=== PATIENT | male | born 1970 | race Caucasian/White ===

== ENCOUNTER 2018-04-18 19:35 | Inpatient (IN) | payer MEDICAID ==
[2018-04-18 19:35] VITALS: BMI 26.8
--- NOTE | 2018-04-18 20:01 | C.PDOC ---
History Of Present Illness 47 year old male with history of ADHD, anxiety and depression presents to the emergency department with complaints of suicidal ideation. Patient reports having suicidal thoughts for the past year, and admits to a previous aspirin ove rdose attempt 6 months ago. Patient denies recent overdose attempt or trauma/ fall/ cutting self. Patient also reports hearing voices which aren't there, but denies visual hallucination. Patient reports that he is taking Xanax and ADHD medication as prescribed for his anxiety and ADHD. He denies chest pain, shortness of breath, abdominal pain, headache, neck stiffness, back pain, fever, night swetas and chills. Time Seen by Provider: 04/18/18 20:01 Chief Complaint (Nursing): Psychiatric Evaluation History Per: Patient History/Exam Limitations: no limitations Onset/Duration Of Symptoms: Other (one year) Current Symptoms Are (Timing): Still Present Suicide/Self Injury Attempted (Context): Other (aspirin overdose 6 months ago) Modifying Factor(s): None Associated Symptoms: Anxiety, Depression, Suicidal Thoughts Past Medical History Reviewed: Historical Data, Nursing Documentation, Vital Signs - Medical History PMH: Anxiety, Depression Denies: Diabetes, Hepatitis, HIV, HTN, Seizures, Sexually Transmitted Disease Other PMH: ADHD Surgical History: No Surg Hx - [facility] Procedures PSYCHIA INTERV/EVAL NEC (02/11/13) Family History: States: No Known Family Hx - Social History Hx Alcohol Use: Yes Hx Substance Use: Yes - Immunization History Hx Tetanus Toxoid Vaccination: No Hx Influenza Vaccination: No Review Of Systems Constitutional: Negative for: Fever, Chills Eyes: Negative for: Pain, Vision Change ENT: Negative for: Ear Pain, Ear Discharge, Nose Pain, Nose Congestion, Mouth Pain Cardiovascular: Negative for: Chest Pain, Palpitations, Edema, Light Headedness Respiratory: Negative for: Shortness of Breath, SOB with Excertion Gastrointestinal: Negative for: Nausea, Vomiting, Abdominal Pain Genitourinary: Negative for: Dysuria, Frequency Musculoskeletal: Negative for: Neck Pain, Shoulder Pain, Back Pain Skin: Negative for: Rash, Lesions, Jaundice Neurological: Negative for: Weakness, Numbness, Incoordination, Change in Speech, Confusion, Seizures, Headache Psych: Positive for: Suicidal ideation, Other (hallucination) Physical Exam - Physical Exam Appears: Non-toxic, No Acute Distress Skin: Normal Color, Warm, Dry Head: Atraumatic, Normacephalic Eye(s): bilateral: Normal Inspection, PERRL, EOMI Ear(s): Bilateral: Normal Nose: Normal Oral Mucosa: Moist Lips: Normal Appearing Teeth: Normal Dentition Gingiva: Normal Appearing Throat: Normal Neck: Normal, Normal ROM, Supple, No Other (meningeal signs) Chest: Symmetrical, No Tenderness Cardiovascular: Rhythm Regular, No Murmur Respiratory: Normal Breath Sounds, No Rales, No Rhonchi, No Wheezing Gastrointestinal/Abdominal: Normal Exam, Soft, No Tenderness, No Mass, No Distention, No Guarding Back: Normal Inspection, No CVA Tenderness, No Vertebral Tenderness Male Genital: Normal Inspection Extremity: Normal ROM Neurological/Psych: Oriented x3, Normal Speech, Normal Cognition, No Cerebellar Signs, Normal Motor, Normal Sensation, Other (suicidal ideation, auditory hallucination) Gait: Steady Extremity: Right: No Drift, Left: No Drift ED Course And Treatment - Laboratory Results Result Diagrams: 04/18/18 20:43 04/18/18 20:43 Medical Decision Making Medical Decision Makin yr old male w/ hx of ADHD, depression, anxiety p/w SI w/ a plan. No active / recent attempt. No signs of trauma or fall. Benign physical exam. No other complaints. Likely SI will require admission. Plan: Acetaminophen Alcohol Serum CMP Drug Screen Magnesium Phosphorus Salicylate CBC Urinalysis 2142 labs reviewed, unremarkable pt in NAD, no signs of etoh use / withdrawal Medically clear 2200 Accepted by CRISIS team to admit to Dr. Brady team for SI Disposition - Disposition Disposition: HOME/ ROUTINE Disposition Time: 22:00 Condition: GOOD - Clinical Impression Clinical Impression: Suicidal ideation - Scribe Statement The provider has reviewed the documentation as recorded by the Scribe (Jaime Linaresvi) Provider Attestation: All medical record entries made by the Scribe were at my direction and personally dictated by me. I have reviewed the chart and agree that the record accurately reflects my personal performance of the history, physical exam, medical decision making, and the department course for this patient. I have also personally directed, reviewed, and agree with the discharge instructions and disposition.
[2018-04-18 20:51] LABS: BASO # 0.1 K/uL (0.0-0.2); BASO % 0.6 % (0.0-2.0); EOS % 0.4 % (0.0-4.0); HEMOGLOBIN 14.6 g/dL (12.0-18.0); LYMPH # 2.2 K/uL (1.0-4.3); LYMPH % 22.3 % (20.0-40.0); MEAN CELL VOLUME 90.8 fL (80.0-94.0); MEAN CORPUSCULAR HEMOGLOBIN 30.2 pg (27.0-31.0); MEAN CORPUSCULAR HGB CONC 33.2 g/dL (33.0-37.0); MEAN PLATELET VOLUME 8.7 fL (7.2-11.7); MONO # 0.7 K/uL (0.0-0.8); NEUT # 6.9 K/uL (1.8-7.0); NEUT % 69.7 % (50.0-75.0); NRBC % 0.1 % (0.0-2.0); RBC 4.84 Mil/uL (4.40-5.90); RED CELL DISTRIBUTION WIDTH 13.3 % (11.5-14.5); WHITE BLOOD COUNT 9.9 K/uL (4.8-10.8)
[2018-04-18 20:57] LABS: URINE BILIRUBIN NEGATIVE (NEGATIVE); URINE BLOOD NEGATIVE (NEGATIVE); URINE COLOR Yellow (YELLOW); URINE GLUCOSE (UA) NORMAL (Normal); URINE LEUKOCYTE ESTERASE NEG Leu/uL (Negative); URINE PROTEIN NEGATIVE (NEGATIVE); URINE UROBILINOGEN NORMAL mg/dL (0.2-1.0)
[2018-04-18 21:03] LABS: ACETAMINOPHEN < 10.0 ug/mL (10.0-30.0); SALICYLATE < 1.0 mg/dL 1
[2018-04-18 21:04] LABS: URINE CLARITY Clear (Clear)
[2018-04-18 21:07] LABS: ALB/GLOB RATIO 1.7 (1.0-2.1); ALBUMIN 4.8 g/dL (3.5-5.0); ALT/SGPT 25 U/L (21-72); AST/SGOT 24 U/L (17-59); BLOOD UREA NITROGEN 12 mg/dL (9-20); CALCIUM 9.5 mg/dl (8.6-10.4); GFR NON-AFRICAN AMERICAN > 60
[2018-04-18 21:11] LABS: BARBITURATES, UR NEGATIVE (NEGATIVE); OPIATES, UR NEGATIVE (NEGATIVE); PHENCYCLIDINE, UR NEGATIVE (NEGATIVE)
[2018-04-18 21:17] LABS: BENZODIAZEPINES, UR POSITIVE (NEGATIVE)
--- NOTE | 2018-04-19 02:43 | PCM.BM ---
<Coretta Staley - Last Filed: 04/19/18 02:40> Treatment Plan Problems - Problems identified on initial assessmt Ineffective impulse control Date Initiated: 04/19/18 Time Initiated: 02:40 Date resolved: 04/18/18 Assessment reference: NA Status: Active Deffective sleeping patterns Date Initiated: 04/19/18 Time Initiated: 02:42 Date resolved: 04/19/18 Assessment reference: NA Status: Active Treatment assets and liabiliti Patient Assests: cooperative, resourceful, negotiates basic needs, cognitively intact Patient Liabilities: poor support system, legal issue - Milieu Protocol Maintain good personal hygiene: daily Encourage regular showers, daily Remind patient to perform daily oral care, daily Assist patient to perform ADL's Conduct patient checks and document Observation sheet: Q15 minutes Maintain personal safety: every shift Educate patient to report safety concerns to staff, every shift Monitor environment for contraband/sharps Medication safety: Monitor for expected outcome, potential side effects: every shift, Assess barriers to learning: every shift, Assess readiness for medication education: every shift <Jerald Rodrigues - Last Filed: 04/21/18 11:23> - Diagnosis (1) Bipolar depression Status: Acute Interventions: 04/21/18 11:22 * Assess/adjust medications daily and /or as needed * See patient on an individual basis 7x/week to assess level of manic behaviors and stability * Discuss risks, benefits, side effects and alternatives of medications * (2) Amphetamine abuse Status: Acute Interventions: 04/21/18 11:24 * Assess 7x/week regarding severity of withdrawal * Educate regarding risks, benefits, side effects and alternatives of medications * Use Motivational Interviewing for abstinence * Use CBT for relapse prevention * Medication management for withdrawal symptoms * Encourage medication assisted treatment * <Maria Ines Holland - Last Filed: 04/21/18 12:00> Family Contact Family involvement: Famliy/SO not involved - Goals for Treatment Patient goals for treatment: "I need housing." Discharge/Continuing Care - Education Needs Education Needs: Patient Medication, Patient Coping Skills, Patient Placement options, Patient Community resources - Discharge Discharge Criteria: Tolerates medication w/o severe side effects, Reduction of target symptoms Discharge to:: Prison - Treatment Team Participation Discussed with Family/SO: No Was Patient/Family/SO present at Treatment Team Meeting: Yes
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
[2018-04-21 06:49] VITALS: O2SAT 98
--- NOTE | 2018-04-21 11:21 | PCM.PYCHPN ---
Psychiatric Progress Note - Psychiatric Progress Note Patient seen today, length of contact: 15 min Patient Chief Complaint: I am feeling irritable Problems Identified/Issues Discussed: Patient was seen and evaluated, chart reviewed and discussed with staff. Patient still reports depressed mood but reports improvement in the feelings of hopelessness and helplessness. Reports some irritability and agitation. He reports some improvement in the auditory and visual hallucinations. He is taking medication but denies any side effects Symptoms improving gradually but he needs to stay longer for further stabilization. Supportive therapy was given Medication Change: Yes Medical Record Reviewed: Yes Mental Status Examination - Cognitive Function Orientation: Person, Place, Situation, Time Memory: Intact Attention: WNL Concentration: Poor Association: WNL Fund of Knowledge: Poor - Mood Mood: Depressed, Anxious - Affect Affect: Constricted, Depressed - Speech Speech: Soft - Formal Thought Process Formal Thought Process: Hallucinations - Suicidal Ideation Suicidal Ideation: No - Homicidal Ideation Homicidal Ideation: No Goal/Treatment Plan - Goal/Treatment Plan Need for Continued Stay: Remain at risks for inpatient hospitalization Progress Toward Problem(s) and Goals/Treatment Plan: Bipolar disorder mixed severe with psychotic features -CBT -Patient education -Supportive therapy and group therapy -Risperdal for psychosis -Zoloft for depression -Trazodone for insomnia -Neurontin for mood -Other PRN medications. - Smoking Cessation Smoking Cessation Initiated: No
[2018-04-23 10:23] VITALS: RESP 18
[2018-04-24] MEDS ORDERED: Influenza Vaccine 60 mcg/0.5 mL SYR (4YR UP) IM ONE (10:00)
[2018-04-24] MEDS ORDERED: Pneumococcal 23-Valent Vaccine IM ONE (10:00)
--- NOTE | 2018-04-24 21:33 | PCM.PYCHPN ---
Psychiatric Progress Note - Psychiatric Progress Note Patient seen today, length of contact: 15 min Patient Chief Complaint: I am feeling better Problems Identified/Issues Discussed: Patient was seen and evaluated, chart reviewed and discussed with staff. Patient reports some improvement in the depressed mood and reports improvement in the paranoia. He is partially compliant with the medication and reports that he is getting better, so he doesnt need meds. Symptoms improving gradually but he needs to stay longer for further stabilization. Supportive therapy was given Medication Change: Yes Medical Record Reviewed: Yes Mental Status Examination - Cognitive Function Orientation: Person, Place, Situation, Time Memory: Intact Attention: WNL Concentration: WNL Association: WNL Fund of Knowledge: Poor - Mood Mood: Depressed, Anxious - Affect Affect: Constricted, Depressed - Speech Speech: Soft - Formal Thought Process Formal Thought Process: No Impairment, Hallucinations - Suicidal Ideation Suicidal Ideation: No - Homicidal Ideation Homicidal Ideation: No Goal/Treatment Plan - Goal/Treatment Plan Need for Continued Stay: Remain at risks for inpatient hospitalization Progress Toward Problem(s) and Goals/Treatment Plan: Bipolar disorder mixed severe with psychotic features -CBT -Patient education -Supportive therapy and group therapy -Risperdal for psychosis -Zoloft for depression -Trazodone for insomnia -Neurontin for mood -Other PRN medications.
--- NOTE | 2018-04-24 21:33 | PCM.PYCHPN ---
Psychiatric Progress Note - Psychiatric Progress Note Patient seen today, length of contact: 15 min Patient Chief Complaint: I am feeling little better.' Problems Identified/Issues Discussed: Patient was seen and evaluated, chart reviewed and discussed with staff. Patient reports some improvement in the depressed mood but reports improvement in the feelings of hopelessness and helplessness. He reports some improvement in the auditory and visual hallucinations. He is taking medication but denies any side effects Symptoms improving gradually but he needs to stay longer for further stabilization. Supportive therapy was given Medication Change: Yes Medical Record Reviewed: Yes Mental Status Examination - Cognitive Function Orientation: Person, Place, Situation, Time Memory: Intact Attention: WNL Concentration: WNL Association: WNL Fund of Knowledge: Poor - Mood Mood: Depressed, Anxious - Affect Affect: Constricted, Depressed - Speech Speech: Soft - Formal Thought Process Formal Thought Process: No Impairment - Suicidal Ideation Suicidal Ideation: No - Homicidal Ideation Homicidal Ideation: No Goal/Treatment Plan - Goal/Treatment Plan Need for Continued Stay: Remain at risks for inpatient hospitalization Progress Toward Problem(s) and Goals/Treatment Plan: Bipolar disorder mixed severe with psychotic features -CBT -Patient education -Supportive therapy and group therapy -Risperdal for psychosis -Zoloft for depression -Trazodone for insomnia -Neurontin for mood -Other PRN medications.
[2018-04-25 06:09] VITALS: BP 123/78; PULSE 70; TEMP 97.8
--- NOTE | 2018-04-25 09:53 | PCM.PYCHDC ---
Mental Status Examination - Mental Status Examination Orientation: Person, Place, Situation, Time Memory: Intact Mood: Neutral Affect: Constricted Speech: Soft Attention: WNL Concentration: WNL Association: WNL Fund of Knowledge: WNL Formal Thought Process: No Impairment Description of patient's judgement and insight: good, fair Psychotic Thoughts and Behaviors: denies any AVH Suicidal Ideation: No Current Homicidal Ideation?: No Discharge Summary - Discharge Note Reason for Hospitalization: Patient is a 47 years old, , homeless, unemployed, male who was admitted due to worsening of depression. Patient reported history of depression with psychotic features and ADHD since childhood. According to patient he was seeing a psychiatrist who was prescribing him Adderall 20 mg daily, Xanax 1 mg twice a day but no medications for depression. Patient also reported getting oxycodone 1 tablet daily from his PCP for his backache. No feeling more depressed with decreased sleep but no change in appetite. Gained some weight. Suicidal ideations at times. History of 1 previous suicide attempt when he took 45 tablets of aspirin. Patient was admitted at [facility]. He attempted 3 months ago. Feels hopeless and helpless. Also reported hearing voices since childhood. Also seen God's eyes and "ghosts most of the time. Never got any treatment. Patient denied manic or anxiety symptoms. Patient reported using cannabis years ago. Denied any substance use currently. Patient [facility] due to [facility]. Currently he is on probation for resisting arrest. Patient was born in [place], moved to [facility] in [place] with mother at 8 years of age. Patient has high school graduation. His last job was in 2002. He is , has 2 children. His son is 11 years of age and daughter is 15 years of age. Both live with their mother. Patient is homeless. He is 5 feet 6 inches tall and his weight is 175 pounds. Consultations:: List each consultation separately and include: 1. Reason for request. 2. Findings. 3. Follow-up Summary of Hospital Course include:: 1. Description of specific treatment plan utilized for patients during their course of treatmen. 2. Summarize the time-course for resolution of acute symptoms and/or regressed behaviors. 3. Describe issues identified and worked on during hospitalization. 4. Describe medication utilized. 5. Describe medical problems identified and treated. 6. Reassessment of suicide risk Summary of Hospital Course: During the course of his stay, patient (pt) started progressively improving and no longer remained irritable, depressed, paranoid and suicidal. His mood and anxiety were improved and he started attending groups and meetings and started socializing. Patient denied any feelings of hopelessness, helplessness, and worthlessness, denied any problem with the sleep or appetite, denied suicidal ideation or homicidal ideation. Pt denied any auditory or visual hallucinations. He denied any withdrawal symptoms. Pt was treated with medications along with supportive therapy, milieu therapy and group therapy. Some changes were made in his current medications, he tolerated these medications very well and denied any side effects. However, he refused to get any prescriptions at the time of discharge. - Diagnosis (1) Bipolar depression Status: Acute (2) Amphetamine abuse Status: Acute - Final Diagnosis (DSM 5) Condition upon Discharge: GOOD DSM 5: Major depressive disorder recurrent severe with psychotic features Disposition: HOME/ ROUTINE Follow-up Treatment Plan: Followup: He was discharged to f/u with his psychiatrist, Dr. Rene Hernandez. Education: Pt was educated and counseled about the risks and benefits of taking and not taking medications. Pt was educated and counseled about the risks of drinking and abusing drugs. Pt was educated and counseled to go to the ER or call 911 if pt develop suicidal ideation or homicidal ideation, worsening of symptoms or severe side effects of the meds. Prescriptions/Medication Reconciliation: Ibuprofen [Motrin Tab] 400 mg PO BID PRN #60 tab PRN Reason: Pain - Smoking Cessation Smoking Cessation Medication prescribed: No - Antipsychotic Medications Pt discharged on 2 or more routine antipsychotic medications: No
== END 2018-04-25 10:29 | disposition home or self-care (01) | DRG 430 ==
LOC: C.ER 19:35 → C.5E 22:01
PROC: GZHZZZZ Group Psychotherapy (ICD-10-PCS; principal; 2018-04-18)
PROC: GZ58ZZZ Individual Psychotherapy, Cognitive-Behavioral (ICD-10-PCS; 2018-04-18)
PROC: GZ56ZZZ Individual Psychotherapy, Supportive (ICD-10-PCS; 2018-04-18)
DX: F31.64 Bipolar disorder, current episode mixed, severe, with psychotic features (principal); F15.10 Other stimulant abuse, uncomplicated; R45.851 Suicidal ideations; F33.3 Major depressive disorder, recurrent, severe with psychotic symptoms; F41.9 Anxiety disorder, unspecified; F90.9 Attention-deficit hyperactivity disorder, unspecified type; G47.00 Insomnia, unspecified; Z59.0 Homelessness; Z91.5 Personal history of self-harm